=== PATIENT | female | born 1945 | race Caucasian/White ===

== ENCOUNTER → 2023-01-03 | Outpatient (CLI) | payer MEDICARE ==
--- NOTE | 2023-01-03 12:33 | MM ---
Reason for Exam: Screening (asymptomatic). Patient History: Menarche at age 10. First Full-Term at age 21. Postmenopausal. Sister had breast cancer, age 72. Risk Values: Cecilia 5 year model risk: 3.2%. NCI Lifetime model risk: 5.4%. Tissue Density: The breast tissue is almost entirely fat. Findings: Analyzed By CAD. Right breast: Grouped calcifications upper outer aspect 7.1; nipple on CC view. Left breast: There is no suspicious group of microcalcifications or new suspicious mass in either breast. Overall Assessment: Incomplete: need additional imaging evaluation, BI-RAD 0 Management: Diagnostic Mammogram of the right breast. [facility] will attempt to contact patient to return for supplemental views and ultrasound if indicated. Patient should continue monthly self-breast exams. A clinical breast exam by your physician is recommended on an annual basis. This exam should not preclude additional follow-up of suspicious palpable abnormalities. Note on Cecilia scores and lifetime risk: 1. A Cecilia score greater than 3% is considered moderate risk. If this is the case, consider specialist referral to assess eligibility for a risk reducing agent. 2. If overall lifetime risk for the development of breast cancer is 20% or higher, the patient may qualify for future screening with alternating mammogram and breast MRI. Electronically signed and approved by: Gavino Aranda DO
== END | disposition home or self-care (01) ==
LOC: RADMAMWWP 11:01
PROVIDERS: ATTEND Family Medicine
DX: Z12.31 Encounter for screening mammogram for malignant neoplasm of breast (principal); Z78.0 Asymptomatic menopausal state; Z80.3 Family history of malignant neoplasm of breast
CPT/HCPCS: 77063; 77067

== ENCOUNTER → 2023-01-11 | Outpatient (CLI) | payer MEDICARE ==
--- NOTE | 2023-01-11 10:45 | MM ---
Reason for Exam: Additional evaluation requested from abnormal screening. Last screening mammogram was performed less than 1 month ago. Patient History: Menarche at age 10. First Full-Term at age 21. Postmenopausal. Sister had breast cancer, age 72. Risk Values: Cecilia 5 year model risk: 3.2%. NCI Lifetime model risk: 5.4%. Tissue Density: Right: There are scattered fibroglandular densities. Findings: Analyzed By CAD. In the upper outer quadrant on magnification views there are persistent group of calcifications. Prior films cannot be located to evaluate for stability. Stereotactic core biopsy is recommended for additional evaluation. Overall Assessment: Suspicious, BI-RAD 4 Management: Stereotactic Core Biopsy of the right breast. A negative mammogram report should not preclude additional follow up of suspicious palpable abnormalities. Patient should continue monthly self breast exam. A clinical breast exam by your physician is recommended on an annual basis and results should be correlated with mammographic findings. Electronically signed and approved by: Beau Rosado D.O. Radiologis
== END | disposition home or self-care (01) ==
LOC: RADMAMWWP 09:45
PROVIDERS: ATTEND Family Medicine
DX: R92.8 Other abnormal and inconclusive findings on diagnostic imaging of breast (principal); Z78.0 Asymptomatic menopausal state; Z80.3 Family history of malignant neoplasm of breast
CPT/HCPCS: 77065; G0279; 77061

== ENCOUNTER → 2023-02-12 | Day surgery (SDC) | payer MEDICARE ==
[2023-02-12 07:52] VITALS: BP 166/77; PULSE 91; RESP 16; TEMP 98
--- NOTE | 2023-02-14 14:09 | MM ---
Risk Values: Cecilia 5 year model risk: 3.2%. NCI Lifetime model risk: 5.4%. Prior Study Comparison: 01/03/2023 Bilateral MG 3D screening mammo w/cad, [facility]. 01/11/2023 Right MG 3D work up w/cad RT, [facility]. Pathology Description: Location: upper outer quadrant. Approach: Lateral to Medial Needle Type: Eviva Cores: 12 Skin Nicks: 1 Gauge: 9 The procedure of stereotactic guided core biopsy was explained to the patient. Benefits, alternatives, and risks were discussed. An informed consent was then obtained. [facility] Shortness pathway was lateral approach. A vacuum assisted biopsy gun was used to obtain multiple core samples. Local lidocaine was utilized for anesthetic. The patient tolerated the procedure well without any immediate complication. The patient was kept in the radiology department for short stay after the procedure and then discharged home in stable condition. Targeted calcifications are identified in specimen mammogram. Post biopsy mammogram shows the tri rosalina clip to appear in satisfactory position relative to the targeted area of concern on the preprocedure images. Impression: SUCCESSFUL, UNCOMPLICATED STEREOTACTIC GUIDED CORE BIOPSY OF AREA OF CONCERN IN THE RIGHT BREAST. Pathology Results: Result: High risk, Flat epithelial atypia. RIGHT BREAST, STEREOTACTIC NEEDLE CORE BIOPSY: Flat epithelial atypia with calcifications in a background of fibrocystic changes including columnar cell change. Overall Assessment: High risk Management: Surgical Consultation of the right breast. Electronically signed and approved by: Loc Leahy D.O.
== END ==
LOC: RADMAMWWP 07:35
PROVIDERS: ATTEND Surgery
DX: R92.1 Mammographic calcification found on diagnostic imaging of breast (principal)
CPT/HCPCS: 88305; 19081; A4648

== ENCOUNTER → 2023-08-27 | Outpatient (CLI) | payer MEDICARE ==
--- NOTE | 2023-08-27 12:42 | MM ---
Reason for Exam: Follow-up at short interval from prior study. Last screening mammogram was performed 7 month(s) ago. Patient History: Menarche at age 10. First Full-Term at age 21. Postmenopausal. 02/12/2023, High risk MG stereo VAD BX RT on the right side. Sister had breast cancer, age 72. Risk Values: Cecilia 5 year model risk: 3.7%. NCI Lifetime model risk: 5.7%. Prior Study Comparison: 01/03/2023 Bilateral MG 3D screening mammo w/cad, [facility]. 01/11/2023 Right MG 3D work up w/cad RT, [facility]. Tissue Density: Right: There are scattered fibroglandular densities. Findings: Analyzed By CAD. Microclip upper-outer quadrant right breast from biopsy 6 months ago. No recurrent calcifications. No significant change from prior exams. Overall Assessment: Benign, BI-RAD 2 Management: Screening Mammogram of both breasts in 6 months. See note below in regards to patient's increased 5 year Cecilia score. Results were given to the patient verbally at the time of exam. Patient should continue monthly self-breast exams. A clinical breast exam by your physician is recommended on an annual basis. This exam should not preclude additional follow-up of suspicious palpable abnormalities. Note on Cecilia scores and lifetime risk: 1. A Cecilia score greater than 3% is considered moderate risk. If this is the case, consider specialist referral to assess eligibility for a risk reducing agent. 2. If overall lifetime risk for the development of breast cancer is 20% or higher, the patient may qualify for future screening with alternating mammogram and breast MRI. Electronically signed and approved by: Kirill Thao M.D. Radiologist
== END | disposition home or self-care (01) ==
LOC: RADMAMWWP 12:17
PROVIDERS: ATTEND Surgery
DX: R92.321 Mammographic fibroglandular density, right breast (principal); Z80.3 Family history of malignant neoplasm of breast; Z78.0 Asymptomatic menopausal state
CPT/HCPCS: 77065; G0279; 77061